=== PATIENT | female | born 1950 ===

== ENCOUNTER 2017-11-30 12:08 | Emergency (ER) | payer MEDICARE ==
[2017-11-30 12:31] VITALS: BP 128/77; PULSE 78; RESP 18; TEMP 97.7; O2SAT 98
--- NOTE | 2017-11-30 13:05 | C.PDOC ---
History Of Present Illness 67 year old female presents to the ED complaining of increased anxiety for the past several days. Patient sees Dr. Velásquez and has a prescription for Xanax 1mg TID for her anxiety. States she typically takes it twice per day, because it makes her sleepy. Patient has not taken any today and reports various complaints of pain to her scalp, lightheadedness, and anxiety. PMD: Levi Velásquez Time Seen by Provider: 11/30/17 12:41 Chief Complaint (Nursing): Anxiety History Per: Patient History/Exam Limitations: no limitations Onset/Duration Of Symptoms: Days (x4) Current Symptoms Are (Timing): Still Present Past Medical History Reviewed: Historical Data, Nursing Documentation, Vital Signs Vital Signs: Last Vital Signs Temp 97.7 F 11/30/17 12:28 Pulse 78 11/30/17 12:28 Resp 18 11/30/17 12:28 BP 128/77 11/30/17 12:28 Pulse Ox 98 11/30/17 14:21 - Medical History PMH: Anxiety, Gastritis, HTN, Hyperlipidemia Family History: States: Unknown Family Hx - Social History Hx Tobacco Use: No Hx Alcohol Use: No Hx Substance Use: No - Immunization History Hx Tetanus Toxoid Vaccination: No Hx Influenza Vaccination: Yes Hx Pneumococcal Vaccination: No Review Of Systems Except As Marked, All Systems Reviewed And Found Negative. Constitutional: Positive for: Other (pain to scalp) Cardiovascular: Positive for: Light Headedness Psych: Positive for: Anxiety Physical Exam - Physical Exam Appears: Non-toxic, No Acute Distress Skin: Normal Color, Warm, Dry Head: Atraumatic, Normacephalic, No Tenderness, No Swelling Eye(s): bilateral: Normal Inspection, PERRL, EOMI Nose: Normal Oral Mucosa: Moist Neck: Normal ROM, Supple Chest: Symmetrical Cardiovascular: Rhythm Regular, No Murmur Respiratory: Normal Breath Sounds, No Accessory Muscle Use Extremity: Bilateral: Atraumatic, Normal ROM Neurological/Psych: Oriented x3, Normal Speech, Other (Calm and cooperative with exam) Gait: Steady ED Course And Treatment O2 Sat by Pulse Oximetry: 98 (RA) Pulse Ox Interpretation: Normal Medical Decision Making Medical Decision Making: [facility] reviewed: filling Xanax for last 6 months. Pt does attend [facility] and has follow up visit tomorrow. Impression: baseline anxiety, high functioning and calm on eval did not take today's Xanax (usually TID) so encouraged to take regularly due to addiction/withdrawal issues. opt f/u w PMD/Psych encouraged. Disposition Doctor Will See Patient In The: Office Counseled Patient/Family Regarding: Studies Performed, Diagnosis, Need For Followup - Disposition Referrals: [facility] [Outside] [facility] [Outside] [facility] [Outside] Shaik Liang MD [Staff Provider] - Levi Velásquez MD [Staff Provider] - Disposition: HOME/ ROUTINE Disposition Time: 13:05 Condition: GOOD Additional Instructions: continue to seek outpatient eval and medication changes for your chronic anxiety. Beware: Xanax is highly addictive and has a very uncomfortable withdrawal syndrome... you must be tapered off this medication while switched to a non- addictive anxiety/depression medication. Seek outpatient resources as outlined below. Instructions: Anxiety, Adult (DC) Forms: [employer] (Turkmen) - POA Present On Arrival: None - Clinical Impression Clinical Impression: Anxiety - Scribe Statement The provider has reviewed the documentation as recorded by the Rinku Shields Provider Attestation: All medical record entries made by the Kalieibe were at my direction and personally dictated by me. I have reviewed the chart and agree that the record accurately reflects my personal performance of the history, physical exam, medical decision making, and the department course for this patient. I have also personally directed, reviewed, and agree with the discharge instructions and disposition.
== END 2017-11-30 13:26 | disposition home or self-care (01) ==
LOC: C.ER 12:08
DX: F41.9 Anxiety disorder, unspecified (principal); I10 Essential (primary) hypertension; E78.5 Hyperlipidemia, unspecified